=== PATIENT | female | born 1970 | race Caucasian/White ===

== ENCOUNTER 2024-02-02 16:06 | Emergency (ER) | payer BC ==
[~2024-02-02] VITALS: Ht 167.6 cm; Wt 81.8 kg
[2024-02-02 16:53] LABS: ALBUMIN 4.2 g/dL (3.5-5.0); BASO # 0.04 K/mm3 (0.02-0.10); HEMOGLOBIN 13.9 g/dL (12.5-16.0); LYMPH# 2.19 K/mm3 (1.50-4.00); MEAN CELL VOLUME 93 fl (78-100); MEAN CORPUSCULAR HEMOGLOBIN 31 pg (27-31); MEAN CORPUSCULAR HGB CONC 33 g/dL (33-37); MEAN PLATELET VOLUME 9.2 fl (7.4-10.4); MONO # 0.46 K/mm3 (0.20-0.80); NEU # 3.77 K/mm3 (1.40-6.50); PLATELET COUNT 309 K/mm3 (130-400); RED BLOOD COUNT 4.53 M/mm3 (4.10-5.30); RED CELL DISTRIBUTION WIDTH 12.3 % (11.5-14.5); WHITE BLOOD COUNT 6.7 K/mm3 (4.8-10.8)
[2024-02-02 16:55] LABS: CALCIUM 9.9 mg/dL (8.3-10.5)
[2024-02-02 16:56] LABS: TOTAL PROTEIN 7.5 g/dL (6.4-8.3)
[2024-02-02 17:18] LABS: TOTAL BILIRUBIN 0.5 mg/dL (0.2-1.2)
[2024-02-02 17:57] VITALS: BP 137/84
== END 2024-02-02 18:10 | disposition home or self-care (01) ==
LOC: ED 16:06
DX: R41.82 Altered mental status, unspecified (principal)